=== PATIENT | female | born 1995 | race American Indian/Alaskan Native ===

== ENCOUNTER 2020-11-17 08:54 | Inpatient (IN) | payer MEDICAID ==
[2020-11-17] MEDS ORDERED: LIDOCAINE (2%) 20 MG/1 ML VIAL 20 ML MDV INFILTRATI ONE (11:24)
[2020-11-17] MEDS ORDERED: ACETAMINOPHEN 325 MG TAB PO PRN (11:24)
[2020-11-17] MEDS ORDERED: CARBOPROST TROMETHAMINE 250 MCG/1 ML INJ IM PRN (11:24)
[2020-11-17] MEDS ORDERED: AMPICILLIN/NS 2 GM/100 ML 2 GM/100 ML BAG IV ONE (11:24)
[2020-11-17] MEDS ORDERED: MINERAL OIL 30 ML ORAL LIQD PO PRN (11:24)
[2020-11-17] MEDS ORDERED: BUTORPHANOL 2 MG/1 ML INJ IV PRN ×2 (11:24)
[2020-11-17] MEDS ORDERED: NALOXONE 0.4 MG/1 ML INJ IV PRN (11:24)
[2020-11-17] MEDS ORDERED: TERBUTALINE 1 MG/1 ML INJ SUB-Q PRN (11:24)
[2020-11-17] MEDS ORDERED: ePHEDrine SULFATE 50 MG/1 ML INJ IV PRN ×2 (11:24→23:22)
[2020-11-17] MEDS ORDERED: miSOPROStol 200 MCG TAB PR PRN (11:24)
[2020-11-17] MEDS ORDERED: fentaNYL 100 MCG/2 ML INJ IV PRN (11:24)
[2020-11-17] MEDS ORDERED: LOPERAMIDE 2 MG CAP PO PRN (11:24)
[2020-11-17] MEDS ORDERED: OXYTOCIN 10 UNIT/1 ML INJ IM PRN (11:24)
[2020-11-17] MEDS ORDERED: ONDANSETRON 4 MG/2 ML INJ IV PRN (11:24)
[2020-11-17] MEDS ORDERED: METHYLERGONOVINE MALEATE 0.2 MG/ML VIAL IM PRN (11:24)
[2020-11-17] MEDS ORDERED: LACTATED RINGERS 1,000 ML IV SCH (11:30)
--- NOTE | 2020-11-17 11:58 | Ultrasound Report ---
BIOPHYSICAL PROFILE CLINICAL DATA: well being TECHNICAL DATA: Document breath, motion, gestational age, tone, and fluid. FINDINGS: respiration, tone, and motion are well visualized and normal. Amniotic fluid volume is normal. Biophysical profile score is 8/8. The lower uterine segment is evaluated and there is no evidence of placenta previa. heart rate is Heart Rate. 132 IMPRESSION: The biophysical profile score is 8/8. LIMITED OB ULTRASOUND TECHNICAL DATA: Real-time imaging was performed for evaluation of the patient's endovascular fluid status FINDINGS: Single fetus in cephalic position. Decreased amniotic fluid is noted. CARLOS 5.4 cm IMPRESSION: CARLOS 5.4 cm (decreased) Signer Name: Todd Baron MD Signed: 11/17/2020 11:54 AM Workstation Name: [id number]
[2020-11-17] MEDS ORDERED: OXYTOCIN DRIP 30 UNITS/500 ML BAG IV SCH ×2 (12:00→13:00)
[2020-11-17 12:37] LABS: Hematocrit 29.6 % (30.3-42.9); Hemoglobin 9.9 gm/dl (10.1-14.3); Mean Corpuscular HGB Conc 33 % (30-34); Mean Corpuscular Volume 86 fl (79-97); Platelet Count 171 K/mm3 (140-440); Red Blood Count 3.44 M/mm3 (3.65-5.03); Red Cell Distribution Width 14.7 % (13.2-15.2)
[2020-11-17] MEDS ORDERED: AMPICILLIN/NS 1 GM/50 ML 1 GM/50 ML BAG IV SCH (16:00)
[2020-11-17] MEDS: AMPICILLIN/NS 1 GM/50 ML 1 GM/50 ML BAG IV SCH ×2 (19:00→20:52)
--- NOTE | 2020-11-17 21:27 | History and Physical Report ---
History of Present Illness Date of examination: 11/17/20 Date of admission: 11/17/20 11:24 Chief complaint: contractions History of present illness: Pt is a 25 year old primigravida TEMITOPE 11/19/20 at 39w5d who presented initially to triage for contractions. During her assessment she had an ultrasound and was found to have oligohydramnios. She denies leakage of fluid or vaginal bleeding. She has had care at [facility] with comanagement by [facility] s econdary to morbid obesity, false positive Hepatitis B surface antigen screen. She is GBS positive. She was scheduled for induction tomorrow (11/18/20) for morbid obesity per [facility] recommendation. Most recent weight available for review from 10/21/20 was 2936g (6lb 8oz) 66%ile. Past History Past Medical History: GERD, other (morbid obesity) Past Surgical History: no surgical history Family/Genetic History: none Social history: no significant social history - Obstetrical History Expected Date of Delivery: 11/19/20 Actual Gestation: 39 Week(s) 5 Day(s) : 1 Medications and Allergies Allergies Allergy/AdvReac Type Severity Reaction Status Date / Time No Known Allergies Allergy Unverified 11/17/20 09:33 Home Medications Medication Instructions Recorded Confirmed Last Taken Type No Known Home Medications [No 11/17/20 11/17/20 Unknown History Reported Home Medications] Active Meds: Active Medications Acetaminophen (Acetaminophen 325 Mg Tab) 650 mg PO Q4H PRN PRN Reason: Pain, Mild (1-3) Butorphanol Tartrate (Butorphanol 2 Mg/1 Ml Inj) 1 mg IV Q2H PRN PRN Reason: Pain, Moderate(4-6) LABOR PAIN Last Admin: 11/17/20 20:59 Dose: 1 mg Documented by: Butorphanol Tartrate (Butorphanol 2 Mg/1 Ml Inj) 2 mg IV Q2H PRN PRN Reason: Pain , Severe (7-10) Carboprost Tromethamine (Carboprost Tromethamine 250 Mcg/1 Ml Inj) 250 mcg IM ONCE PRN PRN Reason: Uterine Bleeding Ephedrine Sulfate (Ephedrine Sulfate 50 Mg/1 Ml Inj) 10 mg IV Q2M PRN PRN Reason: Hypotension Fentanyl (Fentanyl 100 Mcg/2 Ml Inj) 100 mcg IV Q2H PRN PRN Reason: Pain,Severe (7-10) LABOR PAIN Oxytocin/Sodium Chloride (Pitocin/Ns 30 Unit/500ml) 30 units in 500 mls @ 2 mls/hr IV TITR CHAVA; Protocol Last Titration: 11/17/20 20:57 Dose: 4 ml/hr, 4 mls/hr Documented by: Lactated Ringer's (Lactated Ringers) 1,000 mls @ 125 mls/hr IV DIRECT CHAVA Last Admin: 11/17/20 13:42 Dose: 125 mls/hr Documented by: Oxytocin/Sodium Chloride (Pitocin/Ns 30 Unit/500ml) 30 units in 500 mls @ 40 mls/hr IV TITR CHAVA; Protocol Ampicillin Sodium (Ampicillin/Ns 1 Gm/50 Ml) 1 gm in 50 mls @ 100 mls/hr IV Q6H CHAVA; Protocol Last Admin: 11/17/20 20:52 Dose: 100 mls/hr Documented by: Loperamide HCl (Loperamide 2 Mg Cap) 2 mg PO ONCE PRN PRN Reason: give with Hemabate Methylergonovine Maleate (Methylergonovine Maleate 0.2 Mg/Ml Vial) 0.2 mg IM ONCE PRN PRN Reason: Uterine Bleeding Mineral Oil (Mineral Oil 30 Ml Oral Liqd) 30 ml PO QHS PRN PRN Reason: Constipation Misoprostol (Misoprostol 200 Mcg Tab) 800 mcg IL ONCE PRN PRN Reason: Uterine Bleeding Naloxone HCl (Naloxone 0.4 Mg/1 Ml Inj) 0.1 mg IV Q2MIN PRN PRN Reason: Res Rate </= 8 or 02 SAT < 92% Ondansetron HCl (Ondansetron 4 Mg/2 Ml Inj) 4 mg IV Q8H PRN PRN Reason: Nausea And Vomiting Oxytocin (Oxytocin 10 Unit/1 Ml Inj) 10 unit IM ONCE PRN PRN Reason: Uterine Bleeding Terbutaline Sulfate (Terbutaline 1 Mg/1 Ml Inj) 0.25 mg SUB-Q ONCE PRN PRN Reason: Hyperstimulation/Hypertonicity Review of Systems All systems: negative - Vital Signs Vital signs: Vital Signs Pulse BP 64 112/58 11/17/20 09:20 11/17/20 09:20 Temp Pulse Resp BP Pulse Ox 98.3 F 71 18 121/62 92 11/17/20 20:14 11/17/20 21:20 11/17/20 20:14 11/17/20 20:15 11/17/20 21:20 - Obstetrical FHR: auscultation normal Cervical Dilatation: 3 (per RN) Uterine Contraction Pattern: Irregular Uterine Tone Measurement Phase: Resting Uterine Contraction Intensity: Moderate Results Result Diagrams: 11/17/20 11:20 Abnormal lab results 11/17/20 Range/Units 11:20 RBC 3.44 L (3.65-5.03) M/mm3 Hgb 9.9 L (10.1-14.3) gm/dl Hct 29.6 L (30.3-42.9) % All other labs normal. Assessment and Plan A: IUP at 39w5d Oligohydramnios Anemia Morbid Obesity False Positive Hepatitis B Surface Antigen GBS Positive P: Admit to Labor and Delivery Ampicillin for GBS prophylaxis Pitocin induction Continue to closely monitor maternal and status
[2020-11-17] MEDS ORDERED: NALOXONE 2 MG/2 ML INJ IV PRN (23:22)
--- NOTE | 2020-11-17 23:24 | Progress Note ---
Labor Epidural - Labor Epidural Start Time: 22:59 Stop Time: 23:13 Performed by:: CHELY DALTON Procedure: Patient is requesting a laboring epidural for laboring pain. Patient IDed, H&P reviewed, all questions and concerns were answered, and consent was signed. Timeout was performed at bedside. Patient in sitting position. Sterile prep and drape was performed. [3] ml of 1% lidocaine skin wheal at L[3]- L [4]. 18- gauge Tuohy epidural needle was advanced to loss of resistance with saline technique 8cm. Negative CSF negative blood. Epidural catheter advanced to [12] centimeters. [NEGATIVE] Aspiration [NEGATIVE] test dose. Sterile dressing applied. Patient tolerated procedure.
--- NOTE | 2020-11-17 23:25 | Anesthesia Consultation ---
Anesthesia Consult and Med Hx Date of service: 11/17/20 - Airway Anesthetic Teeth Evaluation: Good ROM Head & Neck: Adequate Mental/Hyoid Distance: Adequate Mallampati Class: Class II Intubation Access Assessment: Good - Pulmonary Exam CTA: Yes - Cardiac Exam Cardiac Exam: RRR - Pre-Operative Health Status ASA Pre-Surgery Classification: ASA2 Proposed Anesthetic Plan: Epidural - Pulmonary Hx Smoking: No Hx Asthma: No Hx Respiratory Symptoms: No SOB: No COPD: No Home Oxygen Therapy: No Hx Pneumonia: No Hx Sleep Apnea: No - Cardiovascular System Hx Hypertension: No Hx Coronary Artery Disease: No Hx Heart Attack/AMI: No Hx Angina: No Hx Percutaneous Transluminal Coronary Angioplasty (PTCA): No Hx Cardia Arrhythmia: No Hx Pacemaker: No Hx Internal Defibrillator: No Hx Valvular Heart Disease: No Hx Heart Murmur: No Hx Peripheral Vascular Disease: No - Central Nervous System Hx Neuromuscular Disorder: No Hx Seizures: No CVA: No Hx Back Pain: Yes Hx Psychiatric Problems: No - Gastrointestinal Hx Ulcer: No Hx Gastroesophageal Reflux Disease: No - Endocrine Hx Renal Disease: No Hx End Stage Renal Disease: No Hx Cirrhosis: No Hx Liver Disease: No Hx Insulin Dependent Diabetes: No Hx Non-Insulin Dependent Diabetes: No Hx Thyroid Disease: No Hx Hypothyroidism: No Hx Hyperthyroidism: No - Hematic Hx Anemia: No Hx Sickle Cell Disease: No - Other Systems Hx Alcohol Use: No Hx Substance Use: No Hx Cancer: No Hx Obesity: Yes
[2020-11-17] MEDS ORDERED: fentaNYL-BUPIV 2 MCG/ML-0.125% 200 MCG/100 ML BAG EPIDURAL SCH (23:45)
[2020-11-18] MEDS ORDERED: LIDOCAINE (2%) 20 MG/1 ML VIAL 20 ML MDV INFILTRATI ONE (02:49)
[2020-11-18] MEDS ORDERED: AMPICILLIN/NS 1 GM/50 ML 1 GM/50 ML BAG IV SCH (04:00)
--- NOTE | 2020-11-18 05:10 | Procedure Note ---
OB Delivery Note - Delivery Date of Delivery: 11/18/20 Surgeon: EDGAR SALAZAR Estimated blood loss: other (400 mL) - Vaginal Delivery presentation: vertex Delivery position: OA Intrapartum events: PROM->1hr before delivery, uterine atony (s/p Methergine 0.2 mg IM) Delivery induction: oxytocin Delivery augmentation: pitocin Delivery monitor: external FHT, external uterine Route of delivery: Delivery placenta: spontaneous Episiotomy: none Delivery laceration: other (Bilateral labial lacerations, left periclitoral ) Delivery repair: vicryl Anesthesia: epidural - A at 1 minute: 8 at 5 minutes: 9 Gender: Female (3224g (7lb 1.7oz) @ 0429 am)
[2020-11-18] MEDS ORDERED: ONDANSETRON 4 MG/2 ML INJ IV PRN (08:00)
[2020-11-18] MEDS ORDERED: HYDROcodone/ACETAMINOPHEN 5-325 MG TAB PO PRN (08:00)
[2020-11-18] MEDS ORDERED: WITCH HAZEL/ GLYCERIN PAD TP PRN (08:00)
[2020-11-18] MEDS ORDERED: PROMETHAZINE 25 MG TAB PO PRN (08:00)
[2020-11-18] MEDS ORDERED: PROMETHAZINE 25 MG RECT SUPP PR PRN (08:00)
[2020-11-18] MEDS ORDERED: LANOLIN/ZINC/DIMETHICONE (LANSINOH) 7 GM TP PRN ×2 (08:00)
[2020-11-18] MEDS ORDERED: BENZOCAINE/MENTHOL 20/0.5% TOP SPRAY 56 GM TP PRN (08:00)
[2020-11-18] MEDS ORDERED: diphenhydrAMINE 25 MG CAP PO PRN (08:00)
--- NOTE | 2020-11-18 08:04 | Post Anesthesia Evaluation ---
- Post Anesthesia Evaluation Patient Participated: Yes Airway Patent: Yes Stable Respiratory Function: Yes Nausea/Vomiting: No Temp > 96.8F: Yes Pain Manageable: Yes Adequeate Hydration: Yes Anesthesia Complications: No Block Receding Appropriately: Yes Patient on Ventilator: No
[2020-11-18] MEDS: FERROUS SULFATE 325 MG TAB PO SCH ×2 (11:37→21:39)
[2020-11-18] MEDS: IBUPROFEN 600 MG TAB PO SCH ×3 (11:37→23:39)
[2020-11-18 15:51] LABS: Hematocrit 29.3 % (30.3-42.9); Hemoglobin 9.8 gm/dl (10.1-14.3)
[2020-11-18] MEDS ORDERED: MAGNESIUM HYDROXIDE (MOM) ORAL LIQD UDC PO PRN (22:00)
[2020-11-19] MEDS: IBUPROFEN 600 MG TAB PO SCH (05:34)
[2020-11-19] MEDS ORDERED: TETANUS,DIPH,PERTUSS(ACELL) VACCINE 0.5 ML SYRINGE IM ONE (08:00)
--- NOTE | 2020-11-19 08:21 | Progress Note ---
Assessment and Plan A: PPD #1 s/p at term Acute anemia d/t blood loss M.O. P: Continue with routine care with discharge this morning Initiate oral Fe. Subjective - Subjective Date of service: 11/19/20 Principal diagnosis: s/p at term Interval history: Patient is resting and without complaints. She reports adequate pain control and decreasing lochia. Patient reports: appetite normal, voiding normally, pain well controlled, ambulating normally : doing well Objective - Vital Signs Latest vital signs: Vital Signs Temp Pulse Resp BP BP Pulse Ox 11/19/20 07:30 97.5 F L 60 18 94/54 100 11/19/20 00:31 97.2 F L 73 18 107/53 99 11/18/20 21:14 97.3 F L 84 18 102/53 100 11/18/20 15:29 98.2 F 70 20 106/51 98 11/18/20 12:06 97.9 F 58 L 20 106/64 100 11/18/20 08:39 98.5 F 67 16 110/71 100 Intake and Output 11/18/20 11/19/20 11/19/20 23:59 07:59 15:59 Intake Total 600 240 Output Total 250 300 Balance 350 -60 Intake: Oral 240 Intake, Free Water 360 240 Output: Urine 250 300 Void 250 300 Other: Total, Intake Amount 240 Total, Output Amount 250 300 Voiding Method Toilet # Voids Void 1 - Exam Uterus: Present: normal, fundal height at umbilicus - Labs Labs: Abnormal lab results 11/18/20 Range/Units 15:41 Hgb 9.8 L (10.1-14.3) gm/dl Hct 29.3 L (30.3-42.9) %
--- NOTE | 2020-11-19 08:24 | Discharge Summary ---
Providers - Providers Date of Admission: 11/17/20 11:24 Date of discharge: 11/19/20 Attending physician: EDGAR SALAZAR 11/18/20 07:17 Consult to Structured Cabling Technician [CONS] Routine Reason For Exam: assistance with , SNS Primary care physician: EDGAR SALAZAR Hospitalization Reason for admission: active labor (bilateral labial laceration, left periclitoral), IUP at term Delivery: Episiotomy: none Laceration: other Other procedures: none complications: none Discharge diagnosis: IUP at term delivered baby: female Hospital course: Patient presented with contractions and was found to have oligohydramnios, she went on to have a of a viable female . Her course was uncomplicated. Condition at discharge: Good Disposition: DC-01 TO HOME OR SELFCARE Plan - Discharge Medications Prescriptions: Ferrous Sulfate [Feosol 325 MG tab] 325 mg PO BID 60 Days tablet Ibuprofen [Motrin 600 MG tab] 600 mg PO Q8H PRN 30 Days tablet PRN Reason: Pain - Provider Discharge Summary Activity: routine, no sex for 6 weeks, no heavy lifting 4 weeks, no strenuous exercise Diet: routine Instructions: routine Additional instructions: [] Smoking cessation referral if applicable(refer to patient education folder for contact #) [] Refer to [employer] Center Booklet Call your doctor immediately for: * Fever > 100.5 * Heavy vaginal bleeding ( >1 pad per hour) * Severe persistent headache * Shortness of breath * Reddened, hot, painful area to leg or breast * Drainage or odor from incision. * Keep incision clean and dry at all times and follow doctor's instructions regarding bathing/showering - Follow up plan Follow up: HUMBLE ESCAMILLA, DECORATING CONSULTANT [Advanced Practice Nurse] - 12/16/20
[2020-11-19] MEDS: FERROUS SULFATE 325 MG TAB PO SCH (09:35)
[2020-11-19] MEDS ORDERED: MEASLES, MUMPS & RUBELLA 12,500 UNIT/0.5 ML VACCINE SUB-Q ONE (11:00)
[2020-11-19 14:40] VITALS: BP 105/78
== END 2020-11-19 13:35 | disposition home or self-care (01) | DRG 775 ==
LOC: TRG 08:54 → APU 08:55 → LD 11:24 → TRG 11:24 → OB 11-18 08:04
PROVIDERS: ADMIT Obstetrics & Gynecology; ATTEND Obstetrics & Gynecology
PROC: 10E0XZZ Delivery of Products of Conception, External Approach (ICD-10-PCS; principal; 2020-11-18)
PROC: 0UQMXZZ Repair Vulva, External Approach (ICD-10-PCS; 2020-11-18)
PROC: 3E0R3BZ Introduction of Anesthetic Agent into Spinal Canal, Percutaneous Approach (ICD-10-PCS; 2020-11-18)
PROC: 00HU33Z Insertion of Infusion Device into Spinal Canal, Percutaneous Approach (ICD-10-PCS; 2020-11-18)
PROC: 3E0234Z Introduction of Serum, Toxoid and Vaccine into Muscle, Percutaneous Approach (ICD-10-PCS; 2020-11-19)
PROC: 3E0134Z Introduction of Serum, Toxoid and Vaccine into Subcutaneous Tissue, Percutaneous Approach (ICD-10-PCS; 2020-11-19)
DX: O41.03X0 Oligohydramnios, third trimester, not applicable or unspecified (principal); Z3A.39 39 weeks gestation of pregnancy; Z37.0 Single live birth; Z23 Encounter for immunization; Z20.822 Contact with and (suspected) exposure to COVID-19; K21.9 Gastro-esophageal reflux disease without esophagitis; E66.01 Morbid (severe) obesity due to excess calories; O99.824 Streptococcus B carrier state complicating childbirth; O99.62 Diseases of the digestive system complicating childbirth; O99.214 Obesity complicating childbirth; O62.2 Other uterine inertia; O42.02 Full-term premature rupture of membranes, onset of labor within 24 hours of rupture; O70.0 First degree perineal laceration during delivery; D62 Acute posthemorrhagic anemia; O90.81 Anemia of the puerperium
CPT/HCPCS: 36415; 59025; 76815; 76819; 85014; 85018; 85027; 86592; 86850; 86900; 86901; G0378; J0290; J0595; J2210; J2590; J7120; U0003

== ENCOUNTER 2020-11-24 20:50 | Emergency (ER) | payer MEDICAID ==
[2020-11-25] MEDS ORDERED: ACETAMINOPHEN 500 MG TAB PO ONE (01:21)
[2020-11-25] MEDS ORDERED: IBUPROFEN 600 MG TAB PO ONE (01:21)
--- NOTE | 2020-11-25 02:54 | Vascular Lab Report ---
DUPLEX DOPPLER LOWER EXTREMITY VEINS, BILATERAL INDICATION / CLINICAL INFORMATION: Bilateral Thigh pain and leg swelling, . TECHNIQUE: Duplex doppler imaging was performed through the veins of both lower extremities using venous luanne scott and other maneuvers. COMPARISON: None available. FINDINGS: Right Common Femoral vein: Negative. Right Femoral vein: Negative. Right Popliteal vein: Negative. Right Calf veins: Negative. Left Common Femoral vein: Negative. Left Femoral vein: Negative. Left Popliteal vein: Negative. Left Calf veins: Negative. Additional findings: None. IMPRESSION: 1. No sonographic evidence for DVT in either lower extremity. Signer Name: Miquel Elizabeth MD Signed: 11/25/2020 2:49 AM Workstation Name: [id number]
--- NOTE | 2020-11-25 02:57 | Emergency Department Report ---
ED Extremity Problem HPI - General Chief complaint: Extremity Injury, Lower Stated complaint: ANKLE/FEET SWELLING/THIGH PAIN/POST DELIVERY Source: patient Mode of arrival: Ambulatory Limitations: No Limitations - History of Present Illness Initial comments: Patient is a A0 25-year-old -[place] female with no past medical history and who is approximately 1 week by spontaneous vaginal delivery presents to the ED with complaint of acute onset persistent bilateral lower extremity swelling and medial thigh pain for the last 1 week. Patient states that in the last 2 days the pain and lower extremity edema have since worsened and that she got scared because of the pain and decided come to the ED for evaluation. Patient denies shortness of breath, chest pain, cough, fever, chills, dizziness, syncope, low back pain, fall, heavy lifting, numbness and tingling or weakness of lower extremities bilaterally, neck pain, hemoptysis, dysuria or urinary frequency and urgency. MD Complaint: extremity pain (Bilateral thigh pain ), extremity swelling (Bilateral lower extremity edema and pain), joint swelling (Bilateral lower extremity edema and pain), other (Patient is 1 week ) -: Sudden, week(s) (1) Location: bilateral lower extremity History of Same: Yes (Throughout last 8 weeks of ) -: No myalgia, Yes arthralgia, No fever, No associated dyspnea, No associated chest pain Radiation: distal Severity scale (0 -10): 6 Quality: aching, sharp Consistency: constant Improves with: nothing Worsens with: nothing Associated Symptoms: denies other symptoms, arthralgias. denies: chest pain, shortness of breath, myalgias, rash - Related Data Previous Rx's Medication Instructions Recorded Last Taken Type Ferrous Sulfate [Feosol 325 MG tab] 325 mg PO BID 60 Days tablet 11/19/20 Unknown Rx Ibuprofen [Motrin 600 MG tab] 600 mg PO Q8H PRN 30 Days tablet 11/19/20 Unknown Rx Allergies Allergy/AdvReac Type Severity Reaction Status Date / Time No Known Allergies Allergy Unverified 11/17/20 09:33 ED Review of Systems ROS: Stated complaint: ANKLE/FEET SWELLING/THIGH PAIN/POST DELIVERY Other details as noted in HPI Constitutional: denies: chills, fever Eyes: denies: eye pain, eye discharge, vision change ENT: denies: ear pain, throat pain Respiratory: denies: cough, shortness of breath, wheezing Cardiovascular: denies: chest pain, palpitations Endocrine: no symptoms reported Gastrointestinal: denies: abdominal pain, nausea, diarrhea Genitourinary: denies: urgency, dysuria, discharge Musculoskeletal: arthralgia (Bilateral lower extremity pain and edema, bilateral medial thigh pain). denies: back pain, joint swelling Skin: denies: rash, lesions Neurological: denies: headache, weakness, paresthesias Psychiatric: denies: anxiety, depression Hematological/Lymphatic: denies: easy bleeding, easy bruising ED Past Medical Hx - Past Medical History Previous Medical History?: No Hx Hypertension: No Hx Heart Attack/AMI: No Hx Congestive Heart Failure: No Hx Diabetes: No Hx Deep Vein Thrombosis: No Hx Liver Disease: No Hx Renal Disease: No Hx Sickle Cell Disease: No Hx Seizures: No Hx Asthma: No Hx COPD: No Hx HIV: No - Surgical History Past Surgical History?: No Hx Pacemaker: No Hx Internal Defibrillator: No - Social History Smoking Status: Never Smoker - Medications Home Medications: Home Medications Medication Instructions Recorded Confirmed Last Taken Type Ferrous Sulfate [Feosol 325 MG tab] 325 mg PO BID 60 Days tablet 11/19/20 Unknown Rx Ibuprofen [Motrin 600 MG tab] 600 mg PO Q8H PRN 30 Days tablet 11/19/20 Unknown Rx ED Physical Exam - General Limitations: No Limitations General appearance: alert, in no apparent distress - Head Head exam: Present: atraumatic, normocephalic, normal inspection - Eye Eye exam: Present: normal appearance, PERRL, EOMI Pupils: Present: normal accommodation - ENT ENT exam: Present: normal exam, normal orophraynx, mucous membranes moist, TM's normal bilaterally, normal external ear exam - Neck Neck exam: Present: normal inspection, full ROM. Absent: tenderness, lymphadenopathy - Respiratory Respiratory exam: Present: normal lung sounds bilaterally. Absent: respiratory distress, wheezes, rales, rhonchi, stridor, chest wall tenderness, accessory muscle use, decreased breath sounds, prolonged expiratory - Cardiovascular Cardiovascular Exam: Present: regular rate, normal rhythm, normal heart sounds. Absent: systolic murmur, diastolic murmur, rubs, gallop - GI/Abdominal GI/Abdominal exam: Present: soft, normal bowel sounds. Absent: tenderness, guarding, hyperactive bowel sounds, hypoactive bowel sounds - Extremities Exam Extremities exam: Present: normal inspection, full ROM, tenderness (Palpable mild bilateral medial thigh tenderness; palpable mild diffuse lower extremity tenderness and 1+ pedal edema bilaterally), normal capillary refill, pedal edema (1+ bilateral pedal edema), joint swelling (Bilateral ankle and foot swelling). Absent: calf tenderness - Back Exam Back exam: Present: normal inspection, full ROM. Absent: tenderness, CVA tenderness (R), CVA tenderness (L), muscle spasm, paraspinal tenderness, vertebral tenderness - Neurological Exam Neurological exam: Present: alert, oriented X3, CN II-XII intact, normal gait, reflexes normal - Psychiatric Psychiatric exam: Present: normal affect, normal mood, anxious - Skin Skin exam: Present: warm, dry, intact, normal color. Absent: rash ED Course Vital Signs 11/25/20 11/25/20 02:40 03:45 Temperature 98.5 F Pulse Rate 62 66 Respiratory 16 16 Rate Blood Pressure 127/61 [Left] O2 Sat by Pulse 100 100 Oximetry ED Medical Decision Making - Radiology Data Radiology results: report reviewed, image reviewed [address] [address] Vascular Lab Report Signed Patient: ABIGAIL LUCAS MR# : [id number] : 1995 Acct:[id number] Age/Sex: 25 / F ADM Date: 11/24/20 Loc: ED Attending Dr: Ordering Physician: DIONISIO HURD Date of Service: 11/25/20 Procedure(s): VL venous duplex LE BIL Accession Number(s): [id number] cc: DIONISIO HURD DUPLEX DOPPLER LOWER EXTREMITY VEINS, BILATERAL INDICATION / CLINICAL INFORMATION: Bilateral Thigh pain and leg swelling, . TECHNIQUE: Duplex doppler imaging was performed through the veins of both lower extre mities using venous compression and other maneuvers. COMPARISON: None available. FINDINGS: Right Common Femoral vein: Negative. Right Femoral vein: Negative. Right Popliteal vein: Negative. Right Calf veins: Negative. Left Common Femoral vein: Negative. Left Femoral vein: Negative. Left Popliteal vein: Negative. Left Calf veins: Negative. Additional findings: None. IMPRESSION: 1. No sonographic evidence for DVT in either lower extremity. Signer Name: Miquel Elizabeth MD Signed: 11/25/2020 2:49 AM Workstation Name: [id number] Transcribed By: MAXIMINO Dictated By: Miquel Elizabeth MD Electronically Authenticated By: Miquel Elizabeth MD Signed Date/Time: 11/25/20248 DD/ 8 TD/TT: - Medical Decision Making This is a A0 25-year-old -[place] female with no past medical history and who is approximately 1 week by spontaneous vaginal delivery presents to the ED with complaint of acute onset persistent bilateral lower extremity swelling and medial thigh pain for the last 1 week. Patient states that in the last 2 days the pain and lower extremity edema have since worsened and that she got scared because of the pain and decided come to the ED for evaluation. In the ED, patient is alert and oriented x3 and is not in any distress. Patient is hemodynamically stable. Patient was treated for pain in the ED. The bilateral Doppler ultrasound of the lower extremities showed no sonographic evidence for DVT in either lower extremity. On reevaluation, patient's pain is well controlled medication. Patient was discharged home and advised to continue taking the previously prescribed ibuprofen as needed and to elevate her feet above her heart to enhance fluid return to the heart. Patient was advised to return to the ED immediately if symptoms get worse. Otherwise follow-up with her primary care physician or [employer] physician in 7 to 10 days for reevaluation. - Differential Diagnosis edema; DVT; muscle spasm; muscle strain Critical care attestation.: If time is entered above; I have spent that time in minutes in the direct care of this critically ill patient, excluding procedure time. ED Disposition Clinical Impression: Bilateral lower extremity edema, Muscle spasms of both lower extremities Disposition: DC-01 TO HOME OR SELFCARE Is pt being admited?: No Does the pt Need Aspirin: No Condition: Stable Instructions: Muscle Cramps and Spasms, [id number], Cardona Splints [facility] Additional Instructions: The Doppler ultrasound of lower extremities showed no sonographic evidence of DVT bilaterally. Your symptoms are due to recent and complications with increased fluid overload. Therefore elevate your feet above your heart to enhance the fluid flow or use cardona splints to enhance muscle contractions to control the edema. Otherwise take the previously prescribed pain medication as needed with food and follow-up with your [employer] physician in 5 to 7 days for reevaluation or return to the ED immediately if symptoms get worse. Referrals: LUMA CHAN MD [Primary Care Provider] - 3-5 Days Time of Disposition: 03:18 Print Language: BRUNEIAN
[2020-11-25 04:28] VITALS: BP 127/61
== END 2020-11-25 03:45 | disposition home or self-care (01) ==
LOC: ED 20:50
DX: M62.838 Other muscle spasm (principal); R60.0 Localized edema; Z79.899 Other long term (current) drug therapy
CPT/HCPCS: 93970